=== PATIENT | female | born 1965 | race Caucasian/White ===

== ENCOUNTER 2021-03-27 11:41 | Emergency (ER) | payer OTHER ==
[2021-03-27] MEDS ORDERED: Ketorolac Tromethamine 30 MG/ML VIAL ONE (13:52)
[2021-03-27 14:55] LABS: Bilirubin Negative (Negative); Blood, Urine Negative (Negative); Clarity Clear (Clear); Glucose, Urine (Dipstick) Normal (Negative); Ketone, Urine Negative (Negative); Leukocyte Negative Leu/uL (Negative); Nitrite Negative (Negative); Protein, Urine (Dipstick) Negative (Neg-Trace); Specific Gravity, Urine 1.023 (1.002-1.036); Urobilinogen Normal mg/dL (Less than 2)
== END 2021-03-27 15:30 | disposition home or self-care (01) ==
LOC: ERS 11:41
DX: M54.50 Low back pain, unspecified (principal)
CPT/HCPCS: 81003; 96372; J1885